=== PATIENT | female | born 1995 | race Caucasian/White ===

== ENCOUNTER 2018-12-15 10:10 | Emergency (ER) | payer BC ==
[~2018-12-15] VITALS: Ht 162.6 cm; Wt 97.8 kg
--- NOTE | 2018-12-15 10:31 | NUR ---
PATIENT ARRIVES WITH SIG OTHER WITH RIGHT SIDED FLANK PAIN THAT BEGAN AROUND 9 AM TODAY. URINE COLLECTED AND SENT TO LAB LABELED IN HER PRESENCE. PLACED ON MONITOR, RAILS UP.
[2018-12-15 11:07] LABS: MICROSCOPIC NOT IND
[2018-12-15 11:11] LABS: CULTURE INDICATED? NO
[2018-12-15 11:14] LABS: CHLORIDE 108 mmol/L (98-107)
[2018-12-15 11:15] LABS: BASOPHILS # (AUTO) 0.02 x10^3/uL (0-0.1); BASOPHILS % (AUTO) 0 % (0-1); EOSINOPHILS % (AUTO) 10 % (1-7); LYMPHOCYTES # (AUTO) 1.82 x10^3/uL (1-3.4); LYMPHOCYTES % (AUTO) 23 % (22-44); MD NO; MEAN CORPUSCULAR HEMOGLOBIN 29.3 pg (27.0-34.8); MEAN CORPUSCULAR VOLUME 86.1 fL (80-100); MEAN PLATELET VOLUME 8.8 fL (7.4-10.4); MONOCYTES % (AUTO) 6 % (2-9); NEUTROPHILS # (AUTO) 4.75 x10^3/uL (1.8-6.8); NEUTROPHILS % (AUTO) 60 % (42-75); PLATELET COUNT 281 x10^3/uL (130-400); RED BLOOD COUNT 4.64 x10^6/uL (3.82-5.3); RED CELL DISTRIBUTION WIDTH 13.8 % (9.6-15.2)
[2018-12-15 11:20] LABS: ALANINE AMINOTRANSFERASE 39 U/L (12-78); ALBUMIN 3.7 g/dL (3.4-5.0); ANION GAP 5 mmol/L (5-15); CALCIUM 8.6 mg/dL (8.5-10.1); CREATININE 0.75 mg/dL (0.55-1.02)
[2018-12-15 11:38] LABS: ALKALINE PHOSPHATASE 111 U/L (45-117); BILIRUBIN,TOTAL 0.4 mg/dL (0.2-1.0); TOTAL PROTEIN 7.1 g/dL (6.4-8.2)
--- NOTE | 2018-12-15 12:20 | NUR ---
PATIETN AWAITING ER WORKUP
--- NOTE | 2018-12-15 13:15 | NUR ---
PATIETN OFF TO CT SCAN
[2018-12-15] MEDS ORDERED: OMNIPAQUE 350 MG/ML, 100ML BOTTLE ONE (13:36)
--- NOTE | 2018-12-15 13:42 | NUR ---
patient returned from ct scan.
--- NOTE | 2018-12-15 14:14 | NUR ---
patient requested pain meds. talked to md. ct negative, he is going to check in with patient and discuss with her pillow and repositioning given. warm blanket.
[2018-12-15 14:22] VITALS: BP 132/78
--- NOTE | 2018-12-15 14:22 | NUR ---
discharge teaching reviewed with patient. shows understanding. left with friends driving.
== END 2018-12-15 14:48 | disposition home or self-care (01) ==
LOC: ED 14:30
DX: R10.11 Right upper quadrant pain (principal); R11.0 Nausea
CPT/HCPCS: 36415; 74177; 76700; 80053; 81003; 83690; 84703; 85025; 99284; Q9967

== ENCOUNTER 2020-11-10 22:56 | Emergency (ER) | payer BC ==
[~2020-11-10] VITALS: Ht 162.6 cm; Wt 103.5 kg
[2020-11-10 22:59] VITALS: BP 153/97
[2020-11-11] MEDS ORDERED: LIDOCAINE 1%, 10ML INFIL ONE
[2020-11-11] MEDS ORDERED: NEOSPORIN OINT. PKT 1 PACKET ONE (00:02)
== END 2020-11-11 00:48 | disposition home or self-care (01) ==
LOC: ED 23:26
DX: S61.306A Unspecified open wound of right little finger with damage to nail, initial encounter (principal); W22.8XXA Striking against or struck by other objects, initial encounter; Y93.89 Activity, other specified; Y92.89 Other specified places as the place of occurrence of the external cause; Y99.8 Other external cause status
CPT/HCPCS: 11730; 99284